=== PATIENT | female | born 1960 | race Two or more races ===

== ENCOUNTER 2017-08-10 10:42 | Emergency (ER) | payer OTHER ==
[~2017-08-10] VITALS: Ht 149.9 cm; Wt 86.2 kg
[~2017-08-10 10:42] MED LIST: GILTUSS COUGH-118 ML PO; INTESTINEX680 MG PO
== END 2017-08-10 19:53 | disposition home or self-care (01) ==
LOC: ER 10:42
DX: J40 Bronchitis, not specified as acute or chronic (principal)

== ENCOUNTER 2023-04-23 16:53 | Emergency (ER) | payer OTHER ==
[~2023-04-23] VITALS: Ht 160 cm; Wt 86.2 kg
== END 2023-04-23 20:47 | disposition home or self-care (01) ==
LOC: ER 16:54
DX: S89.81XA Other specified injuries of right lower leg, initial encounter (principal); W19.XXXA Unspecified fall, initial encounter; Y93.89 Activity, other specified; Y92.89 Other specified places as the place of occurrence of the external cause; S59.801A Other specified injuries of right elbow, initial encounter; S49.81XA Other specified injuries of right shoulder and upper arm, initial encounter; Z88.6 Allergy status to analgesic agent